=== PATIENT | female | born 1990 | race Caucasian/White ===

== ENCOUNTER 2021-06-06 14:09 | Emergency (ER) | payer SELFPAY ==
[~2021-06-06] VITALS: Ht 165.1 cm; Wt 68.7 kg
[2021-06-06 14:18] VITALS: BP 138/84
--- NOTE | 2021-06-06 15:44 | ED GU-Female ---
General Chief Complaint: OB < 20 WEEKS Stated Complaint: VAGINAL BLEEDING (5 WK PREG) Nursing Triage Note: PT ARRIVED BY PRIVATE VEHICLE WITH CHIEF COMPLAINT OF 5 WEEKS WITH ABNORMAL BLEEDING. PT STATED ONSET WAS PREVIOUSLY TO WEDNESDAY WHEN SHE SAW [facility] FOR RUSTIC DISCHARGE. PT WAS TOLD BY [facility] SHE HAD A CLOT NEAR EGG, SO SHE IS ON RESTRICTIONS FOR OVER EXERTION AND PELVIC RESTRICTIONS. PT STATED SHE WAS TOLD IF THE DISCHARGE TURNED RED TO CALL HIS OFFICE, WELL THEY LEAVE EARLY ON WEDNESDAYS AND CANNOT SEE HER SO THEY TOLD HER TO GO TO THE ER. PT DOES NTO KNOW WHEN HER LMP WAS. VITALS WERE DONE AND REPORT WAS GIVEN TO PROVIDER. Source: patient Exam Limitations: no limitations History of Present Illness Date Seen by Provider: Jun 06, 2021 Time Seen by Provider: 14:00 Initial Comments Patient is a G1, P0, estimated 5-week gestation female who presents with daily vaginal bleeding for the past 3 days. Patient was evaluated by her PCP and was told that she had subchorionic uterine hemorrhage. She was instructed that if her bleeding worsened that she should follow-up with her doctor in the office. This afternoon her doctor's office was closed [facility] She denies dizziness lightheadedness chest pain palpitation shortness of breath. She reports light intermittent cramping and dark red vaginal discharge or bleeding. She denies passage of clots. No other symptoms or complaints. Patient states her blood type is O+. Timing/Duration: week Severity/Quality: moderate Location: other Radiation: other Activities at Onset: other Sexual Navarro History: other Modifying Factors: Improves With Other Associated Symptoms: other Allergies and Home Medications Patient Home Medication List Home Medication List Reviewed: Yes Review of Systems Review of Systems Constitutional: see HPI EENTM: see HPI Respiratory: see HPI Gastrointestinal: see HPI Genitourinary: see HPI Musculoskeletal: see HPI Skin: see HPI Psychiatric/Neurological: See HPI Endocrine: See HPI Hematologic/Lymphatic: See HPI All Other Systemes Reviewed Negative Unless Noted: Yes Past Wmqjfxg-Kbrzge-Vewllv Hx Patient Social History Tobacco Use?: Yes Tobacco type used: Cigarettes Smoking Status: Current Everyday Smoker Substance use?: No Alcohol Use?: No Pt feels they are or have been: No Immunizations Up To Date First/Initial COVID19 Vaccinat: N/A Second COVID19 Vaccination Minh: N/A 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 oz. kg; 25.00 BMI Method: General Appearance: WD/WN, no apparent distress HEENT: PERRL/EOMI Cardiovascular: regular rate, rhythm Respiratory: lungs clear Neurologic/Psychiatric: alert, oriented x 3 Focused Exam Sepsis Stage: Ruled Out Progress/Results/Core Measures Suspected Sepsis SIRS Temperature: Pulse: 111 Respiratory Rate: 16 Blood Pressure 138 /84 Mean: 102 Results/Orders Lab Results Laboratory Tests Test 06/06/21 14:50 Range/Units Human Chorionic Gonadotropin, Quant 60325 H <5 MIU/ML My Orders Orders - PRINCE MERINO DO Hcg,Quantitative (06/06/21 14:41) Vital Signs/I&O 06/06/21 14:18 Temp 36.1 Pulse 111 Resp 16 B/P (MAP) 138/84 (102) Pulse Ox 100 O2 Delivery Room Air Capillary Refill : Less Than 3 Seconds Blood Pressure Mean: 102 Departure Communication (Admissions) hCG quant, 14, 506 Patient's abdomen soft, nontender. She has good IUP confirmed on ultrasound earlier this week. We will have her trend quant levels and follow-up with her PCP in the office Wednesday. Return precautions reviewed. Patient verbalizes understanding and agreement discharge instructions prior to departure. Impression Primary Impression: Threatened miscarriage in early Disposition: 01 HOME, SELF-CARE Condition: Stable Departure-Patient Inst. Decision time for Depature: 15:43 Referrals: ZOE MORROW MD (PCP/Family) Primary Care Physician Patient Instructions: Threatened Miscarriage (DC) Add. Discharge Instructions: Please continue pelvic rest and follow-up with your PCP on Wednesday for repeat hCG testing and ultrasound. Return to the ED if new or worsening symptoms. All discharge instructions reviewed with patient and/or family. Voiced understanding. PRINCE MERINO DO Jun 06, 2021 15:44
== END 2021-06-06 15:52 | disposition home or self-care (01) ==
LOC: ER FS 14:11
DX: O20.0 Threatened abortion (principal); F17.210 Nicotine dependence, cigarettes, uncomplicated; Z3A.01 Less than 8 weeks gestation of pregnancy
CPT/HCPCS: 36415; 84702; 99282